=== PATIENT | male | born 1955 | race Caucasian/White ===

== ENCOUNTER 2019-03-01 14:08 | Emergency (ER) | payer OTHER ==
[2019-03-01] MEDS ORDERED: HYDROCODONE/APAP 10/325 TAB ONE (15:25)
--- NOTE | 2019-03-01 15:47 | RAD REPORT ---
EXAM DESCRIPTION: RAD - Chest Pa And Lat (2 Views) - 03/01/2019 3:42 pm CLINICAL HISTORY: PAIN Chest pain. COMPARISON: Chest Pa And Lat (2 Views) dated 12/20/2018 FINDINGS: The lungs are clear. The heart is normal in size. Mildly displaced fracture midshaft left clavicle.
--- NOTE | 2019-03-01 15:49 | RAD REPORT ---
EXAM DESCRIPTION: RAD - Shoulder Left 2 View - 03/01/2019 3:42 pm CLINICAL HISTORY: PAIN COMPARISON: No comparisons FINDINGS: AC joint degenerative changes are present. Mildly displaced fracture of the midshaft of th e left clavicle is seen. The glenohumeral joint appears intact.
--- NOTE | 2019-03-01 15:49 | RAD REPORT ---
EXAM DESCRIPTION: RAD - Clavicle Left - 03/01/2019 3:42 pm CLINICAL HISTORY: PAIN Trauma, pain COMPARISON: <Comparisons> FINDINGS: Mildly displaced fracture of the midshaft of the left clavicle is seen.
--- NOTE | 2019-03-01 15:51 | RAD REPORT ---
EXAM DESCRIPTION: RAD - Ribs Left - 03/01/2019 3:42 pm CLINICAL HISTORY: Fall, trauma, pain COMPARISON: None. FINDINGS: Nondisplaced fractures are seen involving the left lateral fourth, fifth and sixth ribs. L eft clavicle fracture also present.
--- NOTE | 2019-03-01 17:49 | EDPHYS ---
Physician Documentation [facility] Name: Tamra Marks Age: 63 yrs Sex: Male : 1955 Arrival Date: 03/01/2019 Time: 14:11 Bed 14 Private MD: Tomer Mcnally V ED Physician Giancarlo Jett HPI: 03/01 14:54 This 63 yrs old Male presents to ER via Ambulatory with complaints of Fall jmm Injury. 14:54 Details of fall: The patient fell from an upright position, while walking. Onset: The jmm symptoms/episode began/occurred acutely, just prior to arrival. Associated injuries: The patient sustained injury to the chest. This is a 63 year old male that presents to the ED with complaints of left sided rib pain and left shoulder pain. Patient states slipping on a boat ramp and landing on his left side. Denies head injury, denies loc. . Historical: - Allergies: 14:33 PENICILLINS; sv - PMHx: 14:33 None; sv - PSHx: 14:33 sinus; sv - Immunization history:: Adult Immunizations up to date. - Social history:: Smoking status: Patient/guardian denies using tobacco. - Ebola Screening: : Patient negative for fever greater than or equal to 101.5 degrees Fahrenheit, and additional compatible Ebola Virus Disease symptoms. ROS: 14:54 Constitutional: Negative for fever, chills, and weight loss, Cardiovascular: Negative jmm for chest pain, palpitations, and edema, Respiratory: Negative for shortness of breath, cough, wheezing, and pleuritic chest pain. 14:54 MS/extremity: Positive for injury or acute deformity, pain. 14:54 All other systems are negative. Exam: 14:54 Constitutional: This is a well developed, well nourished patient who is awake, alert, jmm and in no acute distress. Head/Face: atraumatic. Eyes: EOMI, no conjunctival erythema appreciated ENT: Moist Mucus Membranes Neck: Trachea midline, Supple 14:54 Cardiovascular: Regular rate and rhythm. No edema appreciated Respiratory: Normal respirations, no respiratory distress appreciated Abdomen/GI: Non distended, soft Back: Normal ROM Skin: General appearance color normal MS/ Extremity: Moves all extremities, no obvious deformities appreciated, no edema noted to the lower extremities Neuro: Awake and alert, normal gait Psych: Behavior is normal, Mood is normal, Patient is cooperative and pleasant 14:54 Chest/axilla: left sided rib pain on palpation. 14:54 Chest/axilla: swelling noted to the midclavicular region. 14:54 Cardiovascular: Rate: normal, Rhythm: regular. 14:54 Respiratory: the patient does not display signs of respiratory distress, Respirations: normal. 14:54 Abdomen/GI: Inspection: abdomen appears normal, Bowel sounds: normal, Palpation: abdomen is soft and non-tender. Vital Signs: 14:33 BP 163 / 95; Pulse 64; Resp 18; Temp 98; Pulse Ox 99% ; Weight 88.45 kg; Height 5 ft. sv 10 in. (177.80 cm); Pain 9/10; 15:39 BP 164 / 95; Pulse 67; Resp 16; Temp 97.9(O); Pulse Ox 99% ; mh5 16:33 BP 159 / 91; Pulse 67; Resp 16; Temp 98.1(O); Pulse Ox 100% on R/A; Pain 7/10; rb1 17:30 BP 156 / 89; Pulse 88; Resp 16; Temp 98.3(O); Pulse Ox 100% on R/A; Pain 6/10; rb1 18:22 BP 152 / 90; Pulse 69; Resp 18; Temp 98.5(O); Pulse Ox 99% on R/A; Pain 6/10; rb1 14:33 Body Mass Index 27.98 (88.45 kg, 177.80 cm) sv MDM: 14:54 Patient medically screened. ian 17:46 Data reviewed: vital signs, nurses notes. Counseling: I had a detailed discussion with ian the patient and/or guardian regarding: the historical points, exam findings, and any diagnostic results supporting the discharge/admit diagnosis, radiology results, the need for outpatient follow up, to return to the emergency department if symptoms worsen or persist or if there are any questions or concerns that arise at home. 17:46 Data reviewed: radiologic studies. ian 17:46 ED course: Patient advised to follow up with ortho for reevaluation. Patient given IS ian with return precautions. patient understood and agrees with the plan of care. . 03/01 14:34 Order name: Ribs Left XRAY; Complete Time: 15:53 03/01 14:34 Order name: Chest Pa And Lat (2 Views) XRAY; Complete Time: 15:53 03/01 14:34 Order name: Clavicle Left XRAY; Complete Time: 15:53 03/01 14:34 Order name: Shoulder Left (2 View) XRAY; Complete Time: 15:53 03/01 16:24 Order name: INCENTIVE SPIROMETRY [facility] 03/01 16:48 Order name: Shoulder Immobilizer; Complete Time: 17:48 [facility] Administered Medications: 15:15 Drug: [place] 10 mg-325 mg 1 tabs Route: PO; rb1 16:30 Follow up: Response: No adverse reaction; Pain is decreased rb1 Disposition: 03/01/19 17:48 Discharged to Home. Impression: Multiple fractures of ribs, left side, Fracture of clavicle. - Condition is Stable. - Discharge Instructions: Clavicle Fracture, Rib Fracture, Incentive Spirometer. - Prescriptions for Tylenol- Codeine #3 300-30 mg Oral Tablet - take 1 tablet by ORAL route every 6 hours As needed; 30 tablet. - Medication Reconciliation Form, Thank You Letter, Antibiotic Education, Prescription Opioid Use form. - Follow up: Tomer Mcnally MD; When: 2 - 3 days; Reason: Recheck today's complaints, Continuance of care, Re-evaluation by your physician. Follow up: Corbin Patel MD; When: 2 - 3 days; Reason: Recheck today's complaints, Continuance of care, Re-evaluation by your physician. Addendum: 03/03/2019 06:31 Co-signature as Attending Physician, Giancarlo Jett MD I agree with the assessment and k dr plan of care. Signatures: Dispatcher [employer] EDMS Shannan Cevallos, Giancarlo Villagomez RN, MD MD kdr Mickail, Joel, PA PA [facility] Rocio Hardin RN RN Rosemary Recio, ABRIL RN rb1 Corrections: (The following items were deleted from the chart) 03/01 17:49 17:48 03/01/2019 17:48 Discharged to Home. Impression: Multiple fractures of ribs, left [facility] side; Fracture of clavicle. Condition is Stable. Forms are Medication Reconciliation Form, Thank You Letter, Antibiotic Education, Prescription Opioid Use. Follow up: Tomer Mcnally; When: 2 - 3 days; Reason: Recheck today's complaints, Continuance of care, Re-evaluation by your physician. ian 18:43 17:49 03/01/2019 17:48 Discharged to Home. Impression: Multiple fractures of ribs, left ss side; Fracture of clavicle. Condition is Stable. Discharge Instructions: Clavicle Fracture, Rib Fracture, Incentive Spirometer. Prescriptions for Tylenol-Codeine #3 300-30 mg Oral Tablet - take 1 tablet by ORAL route every 6 hours As needed; 30 tablet. and Forms are Medication Reconciliation Form, Thank You Letter, Antibiotic Education, Prescription Opioid Use. Follow up: Tomer Mcnally; When: 2 - 3 days; Reason: Recheck today's complaints, Continuance of care, Re-evaluation by your physician. Follow up: Dr. Corbin Patel; When: 2 - 3 days; Reason: Recheck today's complaints, Continuance of care, Re-evaluation by your physician. ian
--- NOTE | 2019-03-01 17:49 | ER ---
Nurse's Notes [facility] Name: Tamra Marks Age: 63 yrs Sex: Male : 1955 Arrival Date: 03/01/2019 Time: 14:11 Bed 14 Private MD: Tomer Mcnally V Diagnosis: Multiple fractures of ribs, left side;Fracture of clavicle Presentation: 03/01 14:31 Presenting complaint: Patient states: slipped on a boat rap and fell on his left sv ribs/arm/shoulder about 1.5 hrs ago. Denies LOC. Care prior to arrival: None. Mechanism of Injury: Fall from standing position. Trauma event details: Injury occurred in the [facility], Injury occurred: in a recreational area. Injury occurred: March 01, 2019. 14:31 Acuity: LOLLY 2 sv 14:31 Acuity: LOLLY 3 sv 14:31 Method Of Arrival: Ambulatory sv 14:50 Transition of care: patient was not received from another setting of care. Onset of rb1 symptoms is unknown. Risk Assessment: Do you want to hurt yourself or someone else? Patient reports no desire to harm self or others. Initial Sepsis Screen: Does the patient meet any 2 criteria? No. Patient's initial sepsis screen is negative. Does the patient have a suspected source of infection? No. Patient's initial sepsis screen is negative. 14:50 Onset of symptoms was March 01, 2019. rb1 Historical: - Allergies: 14:33 PENICILLINS; sv - PMHx: 14:33 None; sv - PSHx: 14:33 sinus; sv - Immunization history:: Adult Immunizations up to date. - Social history:: Smoking status: Patient/guardian denies using tobacco. - Ebola Screening: : Patient negative for fever greater than or equal to 101.5 degrees Fahrenheit, and additional compatible Ebola Virus Disease symptoms. Screenin:50 Abuse screen: Denies threats or abuse. Nutritional screening: No deficits noted. rb1 Tuberculosis screening: No symptoms or risk factors identified. Fall Risk Fall in past 12 months (25 points). No secondary diagnosis (0 pts). No IV (0 pts). Ambulatory Aid- None/Bed Rest/Nurse Assist (0 pts). Gait- Normal/Bed Rest/Wheelchair (0 pts) Mental Status- Oriented to own ability (0 pts). Total Ortiz Fall Scale indicates Low Risk Score (25-44 pts). Fall prevention measures have been instituted. Side Rails Up X 2 Placed close to Nursing Station 1:1 attendant Assigned to Pt. Frequent Obs/Assesments occuring Family Present and informed to notify staff if they need to leave bedside As available Patient and Family Educated on Fall Prevention Program and strategies. Assessment: 14:50 General: Appears uncomfortable, Behavior is calm, cooperative. Pain: Complains of pain rb1 in left shoulder and left ribs Pain currently is 10 out of 10 on a pain scale. Neuro: Level of Consciousness is awake, alert, obeys commands, Oriented to person, place, time, situation. Cardiovascular: Capillary refill < 3 seconds is brisk in bilateral fingers. Respiratory: Airway is patent Respiratory effort is even, unlabored, Respiratory pattern is regular, symmetrical. GI: No signs and/or symptoms were reported involving the gastrointestinal system. : No signs and/or symptoms were reported regarding the genitourinary system. Derm: Skin is pink, warm \T\ dry. Musculoskeletal: Range of motion: limited in left shoulder. 15:50 Reassessment: Patient appears in no apparent distress at this time. No changes from rb1 previously documented assessment. at bedside. 16:50 Reassessment: Patient appears in no apparent distress at this time. Patient and/or rb1 family updated on plan of care and expected duration. Pain level reassessed. Patient is alert, oriented x 3, equal unlabored respirations, skin warm/dry/pink. 17:47 Reassessment: Patient appears in no apparent distress at this time. No changes from rb1 previously documented assessment. 18:22 Reassessment: Patient appears in no apparent distress at this time. Patient and/or rb1 family updated on plan of care and expected duration. Pain level reassessed. Patient is alert, oriented x 3, equal unlabored respirations, skin warm/dry/pink. Discharge pending due to waiting for the provider to print discharge paperwork with prescription. Vital Signs: 14:33 BP 163 / 95; Pulse 64; Resp 18; Temp 98; Pulse Ox 99% ; Weight 88.45 kg; Height 5 ft. sv 10 in. (177.80 cm); Pain 9/10; 15:39 BP 164 / 95; Pulse 67; Resp 16; Temp 97.9(O); Pulse Ox 99% ; mh5 16:33 BP 159 / 91; Pulse 67; Resp 16; Temp 98.1(O); Pulse Ox 100% on R/A; Pain 7/10; rb1 17:30 BP 156 / 89; Pulse 88; Resp 16; Temp 98.3(O); Pulse Ox 100% on R/A; Pain 6/10; rb1 18:22 BP 152 / 90; Pulse 69; Resp 18; Temp 98.5(O); Pulse Ox 99% on R/A; Pain 6/10; rb1 14:33 Body Mass Index 27.98 (88.45 kg, 177.80 cm) sv ED Course: 14:11 Patient arrived in ED. as 14:12 Tomer Mcnally MD is Private Physician. as 14:32 Triage completed. sv 14:33 Arm band placed on. sv 14:50 Patient has correct armband on for positive identification. Bed in low position. Call rb1 light in reach. Side rails up X 1. Pulse ox on. NIBP on. 14:51 Oswaldo Solares PA is PHCP. jmm 14:51 Giancarlo Jett MD is Attending Physician. jmm 15:05 Rosemary Recio, RN is Primary Nurse. rb1 15:44 Ribs Left XRAY In Process Unspecified. EDMS 15:44 Chest Pa And Lat (2 Views) XRAY In Process Unspecified. EDMS 15:44 Clavicle Left XRAY In Process Unspecified. EDMS 15:44 Shoulder Left (2 View) XRAY In Process Unspecified. EDMS 17:46 Tomer Mcnally MD is Referral Physician. jmm 17:49 Corbin Patel MD is Referral Physician. jmm 18:38 No provider procedures requiring assistance completed. Patient did not have IV access rb1 during this emergency room visit. Administered Medications: 15:15 Drug: [place] 10 mg-325 mg 1 tabs Route: PO; rb1 16:30 Follow up: Response: No adverse reaction; Pain is decreased rb1 Outcome: 17:48 Discharge ordered by MD. jmm 18:38 Discharged to home ambulatory, with family. rb1 18:38 Condition: stable 18:38 Discharge instructions given to patient, Instructed on discharge instructions, follow up and referral plans. medication usage, Demonstrated understanding of instructions, follow-up care, medications, Prescriptions given X 1. 18:43 Patient left the ED. Signatures: Dispatcher [employer] EDShannan Gray, RN RN Oswaldo Mcdonald PA PA jmm Martinez, Amelia as Smirch, Shelby, ABRIL RN Rosemary Harvey RN RN Nicole Flower [facility]
== END 2019-03-01 18:43 | disposition home or self-care (01) ==
LOC: ER 14:08
DX: S22.42XA Multiple fractures of ribs, left side, initial encounter for closed fracture (principal); S42.022A Displaced fracture of shaft of left clavicle, initial encounter for closed fracture; W01.0XXA Fall on same level from slipping, tripping and stumbling without subsequent striking against object, initial encounter; Y93.01 Activity, walking, marching and hiking; Z88.0 Allergy status to penicillin
CPT/HCPCS: 71046; 99284